=== PATIENT | male | born 1945 | race Caucasian/White ===

== ENCOUNTER 2018-10-13 02:00 | Emergency (ER) | payer OTHER, BC ==
[~2018-10-13] VITALS: Ht 170.2 cm; Wt 86.2 kg
[2018-10-13] MEDS ORDERED: TOPROL XL25 MG PO (02:12)
[2018-10-13] MEDS ORDERED: LISINOPRIL10 MG PO (02:12)
[2018-10-13] MEDS ORDERED: ALEVE220 MG PO (02:13)
[2018-10-13] MEDS ORDERED: XALATAN2.5 ML OPHTHALMIC (02:14)
[2018-10-13] MEDS ORDERED: BETIMOL5 ML OPHTHALMIC (02:15)
[2018-10-13 03:01] LABS: HEMATOCRIT 46.3 % (42.0-52.0); HEMOGLOBIN 15.7 gm/dL (14.0-18.0); MCH 31.2 pg (26.0-34.0); MCHC 33.9 g/dL (28.0-37.0); MCV 91.9 fL (80.0-100.0); RBC 5.04 mil/uL (4.50-6.00); RDW 13.1 % (10.5-14.5); WBC 7.2 thou/uL (4.0-11.0)
[2018-10-13 03:06] LABS: ANION GAP 10 mmol/L (7-16); BUN 26 mg/dL (7-18); CALCIUM 9.2 mg/dL (8.5-10.1); CHLORIDE 107 mmol/L (98-107); CO2 28 mmol/L (21-32); CREATININE 1.2 mg/dL (0.7-1.3); GLUCOSE 127 mg/dL (74-106); POTASSIUM 3.8 mmol/L (3.5-5.1); SODIUM 145 mmol/L (136-145)
[2018-10-13 03:14] LABS: MAGNESIUM 2.1 mg/dL (1.8-2.4); TROPONIN-I <0.06 ng/mL (<0.06)
[2018-10-13 03:32] VITALS: BP 122/73
--- NOTE | 2018-10-13 08:28 | EKG ---
[place] [address] [facility] [place] [address] ELECTROCARDIOGRAM REPORT Name: WILMER PARIKH Room #: CRISTÓBAL Block#: [id number] ������������������ Admission: 10/13/18 ������������������ Attend Phys: Discharge: 10/13/18 ������������������ Date of : 43 Report #: [id number] ����������������������������������������������������������������� [id number] THIS REPORT FOR: //name// [facility] ED Test Date: 2018-10-13 Test Time: 02:21:17 Pat Name: WILMER PARIKH Department: Room: Gender: M Open [place]: REYNA : 1945 Requested By: Tanmay Pisano Order Number: [id number] MD: Soham Anderson Measurements Intervals [place] Rate: 87 P: 50 MI: 159 QRS: 49 QRSD: 85 T: 17 QT: 344 QTc: 414 Interpretive Statements Sinus rhythm No significant abnormality No previous ECG available for comparison Electronically Signed On 10-13-2018 8:28:27 CDT by Soham Anderson [email or web address] ��������������������������������������������� <ELECTRONICALLY SIGNED> ���������������������������������������� By: Soham Anderson MD, [facility] ��������������������������������������������� 10/13/18 0828 0221 0221 Soham Anderson MD, FACC /EPI
== END 2018-10-13 03:32 | disposition home or self-care (01) ==
LOC: ER 02:00
PROVIDERS: Emergency Medicine
DX: I48.0 Paroxysmal atrial fibrillation (principal)